=== PATIENT | female | born 1980 | race Asian ===

== ENCOUNTER 2025-06-04 17:47 | Emergency (ER) | payer OTHER, SELFPAY ==
[2025-06-04 17:52] VITALS: BP 123/83; PULSE 61; RESP 12; TEMP 37; O2SAT 99
--- NOTE | 2025-06-04 19:30 | DI.RAD_ITS ---
Exam(s) XR ANKLE LT COMPLETE EXAM: XR ANKLE LT COMPLETE CLINICAL HISTORY: injury TECHNIQUE: 2D digital imaging was performed of the left ankle. Three images were obtained. AP, lateral and oblique views were obtained. COMPARISON: No exams were available for comparison FINDINGS: BONES: There is an acute mildly distracted fracture of the medial malleolus. There is a lucency seen in the lateral aspect of the talar dome suspicious for fracture (series 2, image 1). No bony destructive lesion is seen. JOINTS:The ankle mortise is normally aligned. SOFT TISSUE: There is soft tissue swelling medially. IMPRESSION: 1. Mildly distracted medial malleolar fracture. 2. Question of a fracture involving the lateral aspect of the talar dome. 3. Soft tissue swelling about the ankle medially. 4. The preliminary [facility] report was reviewed. DATA REPOSITORY: RADIATION DOSE DELIVERED:
--- NOTE | 2025-06-04 19:30 | DI.RAD_ITS ---
Exam(s) XR KNEE LT 3V AP,LAT,JOSE EXAM: XR KNEE LT 3V AP,LAT,JOSE CLINICAL HISTORY: injury. TECHNIQUE: 2D digital imaging was performed of the left knee. Three images were obtained. AP, lateral and PA tunnel views were obtained. COMPARISON: No exams were available for comparison FINDINGS: BONES: No acute fracture is present. No bony destructive lesion is seen. JOINTS: The knee is normally aligned. There is no significant joint effusion. No loose body. SOFT TISSUE: Normal. IMPRESSION: 1. There is no acute fracture or dislocation. 2. If there is concern for internal derangement, an MRI should be considered for further evaluation. 3. The preliminary [facility] report was reviewed. DATA REPOSITORY: RADIATION DOSE DELIVERED:
--- NOTE | 2025-06-04 21:00 | DI.RAD_ITS ---
Exam(s) XR TIB/FIB LT EXAM: XR TIB/FIB LT CLINICAL HISTORY: medial tib fx. TECHNIQUE: 2D digital imaging was performed of the left tibia and fibula. Two images were obtained. AP and lateral views were obtained. COMPARISON: CR,XR XR ANKLE LT COMPLETE from 06/04/2025 FINDINGS: BONES: There is no change in alignment of the mildly distracted fracture involving the medial malleolus. No other fractures identified. No bony destructive lesion is seen. Visualized portion of knee is unremarkable. The patient's lower leg is in a cast. SOFT TISSUE: There is soft tissue swelling around the ankle, particularly laterally. IMPRESSION: 1. Mildly distracted fracture involving the medial malleolus with overlying soft tissue swelling. 2. The preliminary [facility] report was reviewed. DATA REPOSITORY: RADIATION DOSE DELIVERED:
--- NOTE | 2025-06-04 21:12 | DI.[facility]_ITS ---
PROCEDURE INFORMATION: Exam: XR Left Knee Exam date and time: 06/04/2025 7:52 PM Age: 44 years old Clinical indication: Other: Injury TECHNIQUE: Imaging protocol: Radiologic exam of the left knee. Views: 3 views. COMPARISON: No relevant prior studies available. FINDINGS: Bones/joints: Bony alignment is anatomic. Small suprapatellar joint effusion noted. Soft tissues: Normal. IMPRESSION: Small joint effusion. Dictated and Authenticated by: Елена Larose MD. Orderin Aubrie Roa MD
--- NOTE | 2025-06-04 21:14 | DI.[facility]_ITS ---
PROCEDURE INFORMATION: Exam: XR Left Ankle Exam date and time: 06/04/2025 7:57 PM Age: 44 years old Clinical indication: Other: Injury TECHNIQUE: Imaging protocol: Radiologic exam of the left ankle. Views: 3 or more views. COMPARISON: CR XR KNEE LT 3V AP,LAT,JOSE 06/04/2025 7:52 PM FINDINGS: Bones/joints: There is a slightly distracted fracture of the medial malleolus. The ankle mortise and fibula appear intact. There is concern for a talar dome fracture laterally. Soft tissues: Medial soft tissue swelling noted. IMPRESSION: Medial malleolar fracture with concern for lateral talar dome fracture. Dictated and Authenticated by: Елена Larose MD. Orderin Aubrie Roa MD
[2025-06-04] MEDS: Ibuprofen 600 MG TAB PO (21:48)
[2025-06-04] MEDS: oxyCODONE 5 MG TAB PO (21:48)
[2025-06-04] MEDS: Acetaminophen 500 MG TAB 1000 MG PO (21:48)
--- NOTE | 2025-06-04 22:49 | ED.GENADUL_ITS ---
Discharge Plan Disposition Patient Disposition: Home Condition: Stable Discharge Details Clinical Impression: Fracture of medial malleolus Primary Care Provider: Ayala,Local ED Provider: Janina Alfred Home Meds and New Rx's Prescriptions: No Action acetaminophen 500 mg capsule 500 mg PO Q6H PRN Discharge Instructions Instructions: How to Use Crutches, Ankle Fracture ED, How to care for your cast Additional Instructions: Take Motrin and Tylenol as needed for pain Please check in with your doctor to be sure your tetanus is up-to-date I have written you several tabs of morphine which you may take as needed Elevate your ankle and apply ice over the cast I placed you on referral for our orthopedist, give them a call if you do not hear from them by 10 tomorrow If you choose to follow-up in [place], I recommend touching base with your primary care tomorrow to have them give you a referral as you should be reevaluated within the next week Should you have strength or sensation changes or worsening pain please present for reassessment Use crutches with ambulation Keep your splint dry Stand Alone Forms: Portal Information Referrals: Ankush Samuel MD [ [facility] STAFF PHYSICIAN, Orthopaedic Surgical] Discharge Data Discharge Date/Time-TO BE ENTERED AT DEPARTURE: 06/04/25 23:52 HPI General Date/Time Provider Initiated Documentation: 06/04/25 18:01 . HPI Narrative: This 44-year-old female presents after sliding injury, she thinks she hit her left ankle on a tree. She does not believe she lost consciousness. She is otherwise reportedly healthy. She believes her tetanus shot is up-to-date. She denies any sensation change. She denies any chance of . She does have some pain to her knee Related Data Home Medications ?Medication ?Instructions ?Recorded ?Confirmed acetaminophen 500 mg capsule 500 mg PO Q6H PRN 5 06/05/25 Allergies Allergy/AdvReac Type Severity Reaction Status Date / Time No Known Allergies Allergy Unverified 06/05/25 09:48 General Stated Complaint: Orthopedic CE: 4 Exam Narrative Exam Narrative: Alert and oriented 44-year-old female in no acute distress, swelling and mild deformity noted to ankle, small abrasion to medial aspect, tenderness to knee, no tenderness to tib-fib, neurovascularly intact Course Vital Signs Vital signs: Vital Signs Temperature 37 C 06/04/25 17:52 Pulse 61 06/04/25 17:52 Respiratory Rate 12 06/04/25 17:52 Blood Pressure 123/83 06/04/25 17:52 Pulse Oximetry 99 06/04/25 17:52 Temperature 37 C 06/04/25 17:52 Temperature Source Temporal Artery Scan 06/04/25 17:52 Pulse 61 06/04/25 17:52 Respiratory Rate 12 06/04/25 17:52 Blood Pressure 123/83 06/04/25 17:52 Blood Pressure Position Sitting 06/04/25 17:52 Pulse Oximetry 99 06/04/25 17:52 Oxygen Delivery Method Room Air 06/04/25 17:52 Oxygen Flow Rate 0 06/04/25 17:52 Pain Level 6 06/04/25 19:45 Comment took 2 Tylenol after injury 06/04/25 17:52 Medical Decision Making Results: X-ray shows medial malleolus fracture, pending tib-fib, knee does not show acute abnormality per radiology interpretation of my review Assessment and plan: Patient will be placed in a posterior and sugar-tong. Case was discussed with Dr. Riavs, orthopedics patient will need surgery. They reside in [place] but are here for the week and are hoping to follow-up with our orthopedic team. Patient will be given crutches and Ortho-Glass with a referral to orthopedics. I will supply oxycodone for home should they need it with risk of addiction reviewed Procedure: Sugar-tong and posterior splint were applied 3 and 2 left ankle. Patient remained neurovascularly intact pre and postprocedure. PFSH All Active Problems (Updated 06/05/25 @ 08:15 by Ankush Samuel MD) Fracture of medial malleolus, left, closed (Acute) Fracture of medial malleolus (Acute) Surgical History (Updated 06/05/25 @ 09:52 by Dorothea Krishnamurthy RN) H/O esophagogastroduodenoscopy H/O colonoscopy Social History Smoking risk assessment performed?: No Additional Social history: visiting
[2025-06-04] MEDS: MORPHine IR 15 MG TAB, 4 TABS/BTL PO (23:36)
--- NOTE | 2025-06-05 00:13 | DI.[facility]_ITS ---
PROCEDURE INFORMATION: Exam: XR Left Tibia and Fibula Exam date and time: 06/04/2025 11:16 PM Age: 44 years old Clinical indication: Other: Fracture TECHNIQUE: Imaging protocol: Radiologic exam of the left tibia and fibula. Views: 2 views. COMPARISON: CR XR ANKLE LT COMPLETE 06/04/2025 7:57 PM FINDINGS: Bones/joints: There is a displaced medial malleolar fracture which is only partially characterized on the edge of the study. No other fracture or dislocation. Soft tissues: Unremarkable. IMPRESSION: Partially visualized displaced medial malleolar fracture. No proximal fibular fracture to suggest Maisonneuve injury. Dictated and Authenticated by: Shannan Ventura MD. Orderin Aubrie Roa MD
== END 2025-06-04 23:52 | disposition home or self-care (01) ==
PROVIDERS: Emergency Provider Physician Assistant
DX: S82.52XA Displaced fracture of medial malleolus of left tibia, initial encounter for closed fracture (principal); Y93.23 Activity, snow (alpine) (downhill) skiing, snowboarding, sledding, tobogganing and snow tubing
CPT/HCPCS: 99284 ×2; 29515; 73562; 73590; 73610

== ENCOUNTER 2025-06-06 08:29 | Day surgery (SDC) | payer OTHER, SELFPAY ==
--- NOTE | 2025-06-06 07:26 | W.PREOPHP ---
Assessment and Plan Assessment and plan (1) Fracture of medial malleolus, left, closed: Status: Acute Assessment and plan: Ela is a 44-year-old female who suffered an isolated minimally loose fracture about the left ankle. Given the displaced nature of the fracture and the stability provided by the medial malleolus I recommended operative fixation. This will be an open reduction of the fracture fragment and stabilization likely with 2 screws. I reviewed the technical details of the surgery. I discussed risk to include bleeding, infection, pain, stiffness, hardware prominence, hardware failure, malunion, nonunion, need for repeat procedures, damage to nerves and vessels, blood clot. Despite these risk, she elects to proceed. She will be non to partial weightbearing for the first 2 weeks. I will provide her with the fracture walker boot so she may discontinue the splint on her own and enter into the walker boot starting around the 10-14 day tammy. This is a slightly challenging situation and that she lives in [place] but also works in [employer] and so we will coordinate her follow-up over the phone primarily. (2) MCL sprain of left knee: Status: Acute Assessment and plan: Ela also seems to have a sprain of the MCL about the left knee. This could represent a tear of some sort but there is no gross instability of the knee. I will plan to perform an exam under anesthesia just to ensure that there is no gross instability but I cannot detect any findings today. She does not have an effusion. She does not have bruising. I would recommend a hinged knee brace to help support the knee as she starts to ambulate which we will arrange for her today. History of Present Illness History of Present Illness Chief Complaint: LEFT Medial Malleolus Fracture Narrative: Ela is a 44-year-old female who unfortunately was involved in a sledding accident, collision with a tree, on June 04, 2 days prior. She was evaluated in the emergency department and diagnosed with a fracture of the medial malleolus of the left ankle. Further x-rays did not identify any other defect about the left leg. She was splinted. She was referred for this fracture. I called her yesterday to discuss this fracture of the left ankle. Given the displaced nature of the fracture and potential for instability I did recommend operative fixation. She currently lives in [place] but is visiting for at least the next week. She would like to stay local if possible and therefore I did offer fixation. Once again I reviewed that with her today. She denies any numbness or tingling of the left leg. She does report having pain about the medial aspect of the left knee. This has been most notable with direct pressure and with attempted deep flexion. Additionally, she reports some pain about the posterior buttock region, adjacent to the sacrum, worse with sitting. She has had pain in this region before she sits for too long. She denies any bruising to that region. She has no significant past medical history. She has no previous issue with anesthesia. She has no chest pain or shortness of breath. Review of Systems All systems reviewed & are unremarkable except as noted in HPI and below PFSH All Active Problems (Updated 06/06/25 @ 09:21 by Ankush Samuel MD) MCL sprain of left knee (Acute) Fracture of medial malleolus, left, closed (Acute) Fracture of medial malleolus (Acute) Surgical History H/O esophagogastroduodenoscopy H/O colonoscopy Social History Smoking risk assessment performed?: No Additional Social history: visiting Meds Allergies and Home Medications Allergies Allergy/AdvReac Type Severity Reaction Status Date / Time No Known Allergies Allergy Unverified 06/05/25 09:48 Home Medications ?Medication ?Instructions ?Recorded ?Confirmed ?Type acetaminophen 500 mg tablet 1,000 mg (2 x 500 mg) PO TID #90 06/06/25 Rx tabs aspirin 81 mg tablet,delayed 81 mg PO BID #28 tabs 06/06/25 Rx release ibuprofen 600 mg tablet 600 mg PO TID PRN pain #90 tabs 06/06/25 Rx oxycodone 5 mg tablet 5 mg PO Q8H PRN pain #10 tabs 06/06/25 Rx Exam Const General: cooperative, healthy appearing, comfortable and no acute distress Resp Effort & Inspection: normal respiratory effort Auscultation: clear to auscultation bilaterally Cardio Rate: regular rate Rhythm: regular rhythm Extrem Other: Evaluation of the left lower extremity shows no full-thickness abrasions or lacerations. There is some swelling and bruising about the medial ankle. There are wrinkles present. Sensation intact to light touch over the deep and superficial peroneal nerve and tibial nerve. Cap refill less than 3 seconds. There is no pain palpation of the proximal left leg. However, there is exquisite pain over the medial epicondyle of the knee. However, there is no surrounding bruising. There is no surrounding swelling. No significant joint line tenderness. No pain over the pes anserine bursa. No effusion. It is difficult to fully test the knee given the ankle but there is no gross instability varus or valgus stress at 0 or 30 degrees. However, there is pain with valgus stress testing about the medial distal femur. No gross laxity with anterior or posterior drawer. Results Imaging Imaging Studies: X-ray of the left ankle, left knee, and left tib-fib do not show any significant fracture or malalignment except for the medial malleolus as seen on the ankle x-ray primarily. This shows a flexed position of the minimally list with displacement of the anterior corner of the tibiotalar joint.
--- NOTE | 2025-06-06 07:32 | W.PM.DSUDISC ---
Date of service: 06/06/25 Discharge Plan Disposition Patient Disposition: Home Condition: Good Discharge Details Reason For Visit: ORIF L ankle Attending Provider: Ankush Samuel Primary Care Provider: Ayala,[facility] Home Meds and New Rx's Prescriptions: New acetaminophen 500 mg tablet 1,000 mg PO TID Qty: 90 3RF ibuprofen 600 mg tablet 600 mg PO TID PRN (Reason: pain) Qty: 90 0RF oxycodone 5 mg tablet 5 mg PO Q8H MDD 15mg PRN (Reason: pain) Qty: 10 0RF aspirin 81 mg tablet,delayed release (DR/EC) 81 mg PO BID Qty: 28 0RF Discontinued acetaminophen 500 mg capsule 500 mg PO Q6H PRN Discharge Instructions Additional Instructions: Ankle ORIF Discharge Instructions Activity: For the first 10-14 days, you are NON WEIGHT BEARING. You can place the foot down on the ground for balance or to assist with transferring but you are not trying to walk on it yet. You should keep the leg elevated as much as possible, particularly for the first 3-4 days. You may wiggle your toes and move your hip and knee. I would encourage you to work on straight leg raise when you feel ready to work on keeping the muscles of the knee strong. Starting at 10-14 days, you can start putting some weight on the foot with the fracture walker boot. When putting on the boot, it is important to slide the heel all the way to the back and then secure the front. To support the knee, you may choose to use the hinged knee brace when you start to mobilize. This may be worn as needed. THe hole goes in the back and velcro goes in the front. Dressings: You should keep your splint clean and dry. Do NOT get wet or dirty. If you have issues with your splint, please call the office at [phone] or the hospital after hours. After two weeks you may remove the splint and put on the fracture walking boot. Please send a picture of the incision to the office at [phone] or [email or web address]. You may wean into full weightbearing as tolerated in the boot. Six weeks after surgery you may wean into normal footware and normal activites as tolerated. Medications: - You should take Tylenol and Ibuprofen around the clock for baseline pain. - You have been prescribed a stronger narcotic for breakthrough pain. - You should take a Baby Aspirin (81mg) twice a day for blood clot prevention. Follow-up: 2 weeks Stand Alone Forms: Anesthesia Discharge Inst., Louise Agrawal (DSU), Portal Information Referrals: Ankush Samuel MD [ [facility] STAFF PHYSICIAN, Orthopaedic Surgical] Equipment/Supplies: Non-Weight Bearing Crutches Activity:: Elevate Shower/Bathe:: Cover Diet:: As Tolerated Discharge Orders Discharge Orders: Discharge Order (Routine); Ordered 06/06/25 Ordered By: David Peraza DS: Diagnosis Discharge Diagnosis (1) Fracture of medial malleolus, left, closed: Status: Acute
[2025-06-06 08:42] VITALS: BP 118/83; PULSE 72; RESP 16; TEMP 36.6; O2SAT 99
--- NOTE | 2025-06-06 09:45 | DI.RAD_ITS ---
Exam(s) XR ANKLE LT COMPLETE EXAM: XR ANKLE LT COMPLETE CLINICAL HISTORY: fractured left ankle TECHNIQUE: 2D and realtime digital imaging was performed. CONTRAST MATERIAL: Refer to procedure report. COMPARISON: CR,XR XR ANKLE LT COMPLETE from 06/04/2025 FINDINGS: Fluoroscopy was provided for Dr. Samuel during the performance of a reduction and internal fixation of the distal tibial fracture. Please refer to the procedure report for complete details. Ka,r=0.18 mGy IMPRESSION: RADIATION DOSE DELIVERED: 0.0 0.0 0
[2025-06-06] MEDS: Celecoxib 200 MG CAP 400 MG PO (09:51)
[2025-06-06] MEDS: Acetaminophen 500 MG TAB 1000 MG PO (09:51)
--- NOTE | 2025-06-06 10:09 | W.ANESPRE ---
General Info Date of Service Date Performed: 06/06/25 Height: 5 ft 6 in Weight: 55.4 kg Body Mass Index (BMI): 19.7 Surgical Procedure: Operation Date: 06/06/25 10:25 Proposed Procedure Side Surgeon p Ankle ORIF- Medial Malleolus Left Ankush Samuel MD Meds Allergies and Home Medications Allergies Allergy/AdvReac Type Severity Reaction Status Date / Time No Known Allergies Allergy Unverified 06/06/25 09:38 Home Medication ?Medication ?Instructions ?Recorded acetaminophen 500 mg tablet 1,000 mg (2 x 500 mg) PO TID #90 06/06/25 tabs aspirin 81 mg tablet,delayed 81 mg PO BID #28 tabs 06/06/25 release ibuprofen 600 mg tablet 600 mg PO TID PRN pain #90 tabs 06/06/25 oxycodone 5 mg tablet 5 mg PO Q8H PRN pain #10 tabs 06/06/25 Current Visit Medications: Current Medications Generic Name Dose Route Start Last Admin Trade Name Freq PRN Reason Stop Dose Admin Acetaminophen 1,000 mg 06/06/25 06:00 06/06/25 09:51 Acetaminophen 500 Mg Tab PO 06/06/25 23:59 1,000 mg PREOP IVIS Administration Acetaminophen 650 mg 06/06/25 07:31 Acetaminophen 325 Mg Tab PO 07/06/25 07:30 Q4H PRN PRN Celecoxib 400 mg 06/06/25 06:00 06/06/25 09:51 Celecoxib 200 Mg Cap PO 06/06/25 23:59 400 mg PREOP IVIS Administration Ringer's Solution 1,000 mls @ 80 mls/hr 06/06/25 06:00 IV 06/06/25 23:59 INFUSION IVIS Cefazolin Sodium/Dextrose 2 gm in 50 mls @ 100 mls/hr 06/06/25 06:00 Ancef Duplex IVPB 06/06/25 23:59 PREOP IVIS Tranexamic Acid/Sodium Chloride 1,000 mg in 100 mls @ 600 mls/hr 06/06/25 06:00 IVPB 06/06/25 23:59 PREOP IVIS Oxycodone/Acetaminophen 1 tab 06/06/25 07:31 Oxycodone 5 Mg/Acetaminophen 325 Mg Tab PO 07/06/25 07:30 Q4H PRN PRN Pain Sodium Chloride 0 ml 06/06/25 06:00 Normal Saline Flush 10 Ml Syr IV 06/06/25 23:59 PRN PRN Sodium Chloride 0 ml 06/06/25 06:00 Normal Saline 10 Ml Vial IJ 06/06/25 23:59 DIRECTED PRN Sterile Water 0 ml 06/06/25 06:00 Water,Injection,Sterile 10 Ml Vial IJ 06/06/25 23:59 DIRECTED PRN PFSH Active Problems Active Problems: Problem Status Onset Code MCL sprain of left knee Acute S83.412A Fracture of medial malleolus, left, closed Acute S82.52XA Fracture of medial malleolus Acute S82.53XA Surgical History Surgical History H/O esophagogastroduodenoscopy H/O colonoscopy Tobacco Smoking/Tobacco Use Status: Never Alcohol Alcohol Intake: current Alcohol intake frequency: holidays/special occasions only Substance Use Substance use: Never Substance use type: does not use Vital Signs and Lab Results Vital Signs Most Recent Vital Signs in EMR: Most Recent Vital Signs Temp Pulse Resp BP Pulse Ox 36.6 C 72 16 118/83 99 06/06/25 08:42 06/06/25 08:42 06/06/25 08:42 06/06/25 08:42 06/06/25 08:42 Point of Care Results Point of Care Results: POC- Test(urine) Negative 06/06/25 09:37 Anesthesia Assessment and Plan Anesthesia History Personal History: No History of Anesthesia Complications Family History: No Family History of Anesthesia Complications Exercise Tolerance Exercise Tolerance: Metabolic Equivalents>4 Pertinent Negatives Pertinent Negatives: No Symptoms of GERD, No Major Cardiovascular Symptoms or Complaints and No Major Pulmonary Symptoms or Complaints Cardiac & Pulmonary Exam Cardiac Exam: Normal S1/S2 Heart Sounds Pulmonary Exam: Clear Bilateral Breath Sounds Implantable Cardiac Device Does patient have a Pacemaker or an ICD?: No Airway Exam Known Difficult Airway: No Mallampati Class: 1 Mouth Opening: Normal (> 3cm) Thyromental Distance: Greater than 3 cm Neck Range of Motion: Full ROM Neck Circumference: Normal Teeth Condition: Normal Dentition Airway Comments: Reports she has jaw clicking, right worse than left. ASA Classification ASA Score: ASA 1 Emergency Case?: No NPO Status NPO Status: NPO Clears >2 hours, Solids >8 hours Status Status: Negative HCG Anesthesia Plan Resuscitation Status: Full Code Anesthesia Technique: Spinal Anesthesia Airway Planned: Natural Airway Monitors Used: Standard Monitors and SedLine Preoperative Comments:: After careful consideration of GA vs SAB, patient elects for SAB with light sedation, GA backup. Consented for rescue adductor canal block for postoperative pain if necessary.
[2025-06-06] MEDS: Lactated Ringers 1,000 ML 80 ML IV (10:10)
[2025-06-06 10:11] VITALS: BMI 19.7
[2025-06-06] MEDS: ceFAZolin 2 GM/50 ML BAG IVPB (10:31)
[2025-06-06] MEDS: TRANEXAMIC ACID/SOD. CHL. 1,000 MG/100 ML BAG 600 MG IVPB (10:48)
[2025-06-06] MEDS: Bupivacaine 0.25% Pres-Free W/EPI 30 ML VIAL (11:31)
[2025-06-06 11:55] VITALS: BP 97/61; PULSE 55; RESP 16; TEMP 36.1; O2SAT 100
--- NOTE | 2025-06-06 12:28 | W.ANESPOSTOP ---
Postoperative Evaluation Date, Time and Location Date Performed: 06/06/25 Time Performed: 12:28 Patient Location: Day Surgery Unit Vital Signs Most Recent Imported Vital Signs: Most Recent Vital Signs Temp Pulse Resp BP Pulse Ox 36.1 C L 55 L 16 97/61 L 100 06/06/25 11:55 06/06/25 11:55 06/06/25 11:55 06/06/25 11:55 06/06/25 11:55 Pain Score Most Recent Pain Score: Most Recent Pain Score Pain Level 0 06/06/25 11:55 Assessment Mental Status: Awake (Alert & Oriented to Patient Baseline) Airway and Respiratory Function: Patent airway with normal (patient baseline) respiratory exam Cardiovascular Function: Hemodynamically Stable Hydration Status: Adequately Hydrated Nausea & Vomiting: No Nausea or Vomiting Pain: Pt. Denies Any Pain Peripheral Nerve Block: Patient did not receive a nerve block
[2025-06-06 12:29] VITALS: BP 111/76; PULSE 57; RESP 15; TEMP 36.1; O2SAT 99
--- NOTE | 2025-06-06 13:28 | W.PM.OP ---
Operative Note Operative Note PRE-OP DIAGNOSIS: Left Medial Malleolus Fracture POST-OP DIAGNOSIS: same PROCEDURE: Open Reduction and Internal Fixation of Left Medial Malleolus SURGEON: Ankush Samuel CLAMP JIG ASSEMBLER: David Peraza ANESTHESIA TYPE: Spinal Refer to Anesthesia Record ESTIMATED BLOOD LOSS: 50 PATHOLOGY: none sent TOURNIQUET TIME: 0 COMPLICATIONS: None Patient was transported to: same day Patient's condition: stable Indications: Ela is a 44 year old female who presented to the Emergency Department after a sledding injury. X-rays confirmed the diagnosis of a displaced medial malleolus fracture. I reviewed the possible treatment options and given the fracture, I recommended operative fixation. I discussed the technical details of the surgery. I reviewed the risks such as bleeding, infection, pain, stiffness, malunion, nonunion, hardware prominence, hardware faiilure, malrotation, damage to nerves and vessels, blood clot. Despite these risks, she agreed to proceed. Findings: Brief exam under anesthesia of the left knee showed no instability to varus or valgus stress nor to Shara or anterior posterior drawer. The medial malleolus fragment was a large and unstable fragment with complete avulsion of the periosteal attachment of the deltoid ligament from the proximal side of the volar fragment. The fracture fragment was able to be reduced anatomically and transfixed with two 4.0 mm cannulated screws. Procedure Description: Ela was greeted in the preoperative area. Consent was reviewed and signed. She was taken to the operating room. She was transferred to the operating room table. A spinal anesthetic was administered. I then performed a brief exam under anesthesia about the left knee. This did not show any instability to varus or valgus stress nor with a Shara or anterior posterior drawer. Then, the left leg was placed onto a bone foam ramp. There was a skin tear seen at the medial aspect of the hindfoot with some maceration of the skin in the area but no deep penetrating injury seen and no active bleeding. All bony prominences were well padded. Arms were placed out to the side, padded, and secured. A single dose of TXA, 1 gram, was then administered IV. Prophylactic antibiotics, Cefazolin 2 grams, was given for prophylactic antibiotics. A timeout was performed for safe surgery. The left leg was prepped with Chloraprep. The leg was draped with a stockinette and extremity drape. The proposed surgical site was anesthetized with 0.25% bupivacaine. A slightly curved incision over the anterior aspect of the minimally this was made. This taken out sharply the skin. The deep fascia was opened with a Metzenbaum scissors. The medial fragment was these identifiable with notable displacement. A large portion of the deltoid fibers and periosteal tissues were entrapped within the fracture. I released some of the periosteal tissues and was able to fish out a large portion of the periosteal sleeve which merges into the deltoid ligament about the anterior medial malleolus. This was elevated sharply from the fracture edge so I can observe the fracture particularly in the anterior aspect at the corner of the tibiotalar joint. Likewise the fracture was visible on the tibial side as well. The fracture was distracted and the joint was irrigated. There were no loose fragments seen. There is no chondral injury appreciated about the talus. Then a reduction maneuver was performed utilizing a dental pick for direct manipulation of the fracture fragment as well as manipulation of the foot. The anterior edge of the fracture was lined up anatomically and held in position while the posterior edge was manipulated into near-anatomic position. With this being held 2 K wires were placed from the 4.0 mm cannulated screw system. With the wires in position, x-ray was utilized to show that the medial is good to be anatomically reduced. The wires were in appropriate position. I then incised the fascia and deltoid ligament over the tip of the medial malleolus, measured the length of the screw and then drilled a screw path for the most anterior screw first. A 58 mm long partially-threaded screw was placed with a washer. This was manually tightened until there is some compression of the fracture. However, before finally compressing fracture I then proceeded to do the same for the posterior screw. A similar 50 mm long partially-threaded screw was placed, without a washer, given how good the bone quality was. I then intervally tightened each screw until there was compression of the fracture. There is no gapping of the fracture. There is no apparent malreduction of the fracture with direct visualization. I then reapproximated the periosteal sleeve which was attached to the distal fragment onto the medial tibia. This was laid down onto the bone underneath the deep fascia. Some of the crossing fascia about the malleolar fragment was then reapproximated with a #2-0 Vicryl. This was done at multiple locations to secure the fascia and the periosteum, covering the fracture as well as securing this periosteal sleeve in appropriate position. Deltoid ligament was reapproximated over the split of the screw anteriorly. Final x-rays were obtained which showed appropriate positioning of the fracture. A stress view was also obtained which did not show any gapping of the fracture medially or laterally. The wound was thoroughly irrigated and the remainder of the 0.25% to pain was injected in the deep tissues. The subcutaneous tissue was reapproximated with 3-0 Vicryl. Skin was closed with a #4-0 Monocryl in a subcuticular fashion. At the end of the case, all counts were correctJennifer Mahmood tolerated the procedure well without known complication and was taken to day surgery for recovery. She was placed into a short leg posterior splint. She was also sent home with a fracture walker boot, which she will transition into at about 10 to 14 days. She also was fitted for a hinged knee brace for suspected MCL sprain. She will be nonweightbearing to start and then transition to weightbearing as tolerated at 10 to 14 days. Date of Procedure: 06/06/25
--- NOTE | 2025-06-09 17:53 | PDOC.ANES ---
Date of service: 06/09/25 Time of Service: 11:30 Anesthesia Note Report Anesthesia Note: Contacted by Dr. Jimmie thompson pt. Ela Arthur (: [phone]). Pt is 3days post-op with ORIF of ankle fracture and SAB anesthesia. Pt has been having symptoms of nausea with vertigo when she sits up from supine position that ultimately results in Nausea and vomiting. Unclear if she has photophobia. No fevers. Encourage hydration with caffeine intake. May also consider steroids and gabapentin dosing for 7days. If develops a fever should come to the ED. Attempted to call patient for follow-up. Radha Valadez CRNA
--- NOTE | 2025-06-09 18:18 | PDOC.ANES ---
Date of service: 06/09/25 Time of Service: 18:18 Anesthesia Note Report Anesthesia Note: Correction to previous note. Was able to reach patient by phone and gave her guidance as described in previous note. Radha Valadez CRNA
--- NOTE | 2025-06-11 10:21 | ANES_ITS ---
Anesthesia Note Report Anesthesia Note: Follow-up with patient by phone this morning. She states that her symptoms are mostly resolved and no longer has vertigo or nausea with sitting up or standing. She stated that she felt well enough to travel home to [place] today. I encouraged her to continue fluid and caffeine intake as needed. Also encouraged her to follow-up with her PCP at home if symptoms returned. She is on day 3 of steroids. Radha Valadez CRNA
== END 2025-06-06 14:20 | disposition home or self-care (01) ==
LOC: SUR 08:30
PROVIDERS: Visit Provider Student in an Organized Health Care Education/Training Program
PROC: (CPT 27766; principal; 2025-06-06 10:15)
DX: S82.52XA Displaced fracture of medial malleolus of left tibia, initial encounter for closed fracture (principal); W22.09XA Striking against other stationary object, initial encounter; Y93.23 Activity, snow (alpine) (downhill) skiing, snowboarding, sledding, tobogganing and snow tubing
CPT/HCPCS: 27766; 76000; 81025; 73610; J0690; J2003; J2250; J2401; J2405; J2704